=== PATIENT | male | born 2000 | race African-American/Black ===

== ENCOUNTER 2025-07-28 11:33 | Emergency (ER) | payer SELFPAY ==
--- OUTSIDE RECORDS SUMMARY | 2011-02-12 06:43 | XMS_ITS | Continuity of Care Document ---
Author Organization [facility] Address [address] [place] [address] Phone Care Team Providers Care Room Designer Name Role Phone KirstinRobby Unavailable Unavailable Allergies, Adverse Reactions, Alerts Substance Reaction Status Criticality No Known allergies Procedures Procedure Date OFFICE/OUTPATIENT VISIT, [facility] HIV-1 Condoms PREVENTIVE COUNSELING, INDIV MMR VACCINE, SC POLIOVIRUS, IPV, SC/IM TDAP VACCINE >7 IM Advance Directives Directive Yes / No Effective Date File Name Resuscitation Not Answered N/A N/A Life Support Not Answered N/A N/A Intubation Not Answered N/A N/A Antibiotics Not Answered N/A N/A IV Fluid Support Not Answered N/A N/A Tube Feed Not Answered N/A N/A Other Directive N/A N/A WARNING:The information contained in this section is historical and is provided for information only and does not constitute a legal document or any assurance that the information is still accurate. Please verify the information with the jacobs of the legal document before using it for clinical purposes. Encounters Encounter Description Practice Location Reason(s) For Visit Diagnoses Date Provider Providers Copied on Encounter [facility], [address] [place] [address], [id number], [place] tel:[phone] [facility] STI male (chief complaint) No Information Kirstin Bustamante. [address] [place] [address], [id number], [place]. tel:[phone] OFFICE/OUTPATI ENT VISIT, [facility], [address], [place], [id number], [place] tel:[phone] [facility] STI male (chief complaint) Screening examination for venereal disease Kirstin Bustamante. [address], [place], [id number], [place]. tel:[phone] PREVENTIVE COUNSELING, INDIV [facility], [address], [place], [id number], [place] tel:[phone] [facility] No Information Visci DO Sunny. [address], [place], [id number], [place]. tel:[phone] Family History Family Member Type Diagnosis Age At Onset No Information Payers Payer name Insurance type Covered democrat ID Bernie pinzon(s) [employer] [place] [employer] [id number] Social History Type Description Quantity Date Captured Comments Alcohol Use Details Unknown Caffeine Use Details Unknown Tobacco Use Status No Information Smoking Status No Information Sex Male Sexual Orientation Straight or heterosexual Chief Complaint And Reason For Visit From encounter dated '02/12/2011 11:43'. STI male (chief complaint) Reason For Referral Reason For Referral No Information History Of Present Illness Encounter Date Complaint History Of Prese nt Illness No Information Functional Status Date Functional Assessmen t No Information Instructions Date Instruction Additional Infor gladis No treatment indicat ed today. Call for test results. Related to Screening examination for venereal disease Avoid sexual activit y while you await your test results. Related to Screening examination for venereal disease Assessments Type Assessment Date No Information Patient Care Teams Name Effective Dates (start - stop) Status Members No Information
[2025-07-28 11:36] VITALS: BP 160/89; PULSE 58; TEMP 36.4; O2SAT 97; BMI 27.0
[2025-07-28] MEDS: TETRACAINE HCL 0.5% OP SOL 80 DROP/4 ML BOTTLE OP (11:55)
--- NOTE | 2025-07-28 11:55 | ED_ITS ---
HPI HPI - General Adult General Chief complaint: Eye Problems Stated complaint: implementation analyst in eye Time Seen by Provider: 07/28/25 11:35 Source: patient Mode of arrival: walk-in History of Present Illness HPI narrative: 25-year-old male presents for left eye issue. 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 He describes some burning and irritation. No other injury was sustained. Related Data Previous Rx's ?Medication ?Instructions ?Recorded ketorolac 0.5 % eye drops (Acular) 1 drp ophthalmic (e ye) Q6H PRN eye 07/28/25 pain #5 mL Allergies Allergy/AdvReac Type Severity Reaction Status Date / Time No Known Drug Allergies Allergy Verified 07/28/25 11:39 Review of Systems ROS Narrative A ten point review of systems is negative except as noted above. PFSH PFSH Social History Little interest or pleasure in doing things: not at all Feeling down, depressed, or hopeless: not at all Exam Narrative Exam Narrative: Nurses note and vital signs reviewed General:The patient appears well and in no apparent distress.Patient is resting comfortably on cart. Skin:Warm, dry, no pallor noted.There is no rash noted. Head:Normocephalic, atraumatic Eye: Right eye appears normal. The left conjunctiva is injected. No foreign bodies are noted. Globe intact. Extraocular movements are intact. Ears, Nose, Mouth, and Throat: oral mucosa is moist. Nares patent. Cardiovascular:Regular Rate and Rhythm Respiratory:Patient is in no distress, no accessory muscle use, lungs are clear to auscultation, no wheezing, rales or rhonchi Back:non-tender GI: Soft and nontender Musculoskeletal: No joint swelling Neurological:A&O, normal speech Psychiatric:Cooperative Constitutional Vital Signs, click to edit/add: Last Vital Signs Temp 97.6 F 07/28/25 11:36 Pulse 58 L 07/28/25 11:36 Resp 18 07/28/25 11:36 BP 160/89 H 07/28/25 11:36 Pulse Ox 97 07/28/25 11:36 O2 Del Method Room Air 07/28/25 11:36 Course Vital Signs Vital signs: Vital Signs Temperature 97.6 F 07/28/25 11:36 Pulse Rate 58 L 07/28/25 11:36 Respiratory Rate 18 07/28/25 11:36 Blood Pressure 160/89 H 07/28/25 11:36 Pulse Oximetry 97 07/28/25 11:36 Oxygen Delivery Method Room Air 07/28/25 11:36 Temperature 97.6 F 07/28/25 11:36 Pulse Rate 58 L 07/28/25 11:36 Respiratory Rate 18 07/28/25 11:36 Blood Pressure 160/89 H 07/28/25 11:36 Pulse Oximetry 97 07/28/25 11:36 Oxygen Delivery Method Room Air 07/28/25 11:36 Medical Decision Making MDM Narrative Medical decision making narrative: His eye was irrigated with Harrison lens irrigation and he was prescribed Acular. Treatment diagnosis and follow-up were discussed with the patient. Differential Diagnosis Differential Diagnosis: Chemical conjunctivitis, bacterial conjunctivitis Discharge Plan Discharge Chief Complaint: Eye Problems Clinical Impression: Chemical conjunctivitis Patient Disposition: Home, Self-Care Time of Disposition Decision: 12:06 Mode of Transportation: Private Vehicle Prescriptions / Home Meds: New ketorolac [Acular] 0.5 % drops 1 drp ophthalmic (eye) Q6H PRN (Reason: eye pain) Qty: 5 0RF Print Language: Divehi Instructions: How to Use Eye Drops (ED), Conjunctivitis (ED) Referrals: MARIFRE EVANS [Primary Care Provider, Family Practice] - 1 week
--- OUTSIDE RECORDS SUMMARY | 2025-07-28 11:59 | XMS_ITS | Clinical Summary ---
Author Organization [facility] Address [address] [place] [address] Care Team Providers Care Analytics Leader Name Role Phone Unavailable Primary Care Provider Unavailabl e Social History Tobacco UseTypesPacks/DayYears UsedDateSmoking Tobacco: Never AssessedSex and Gender InformationValueDate RecordedSex Assigned at BirthNot on fileLegal Sex Male11/14/2022 7:22 PM EDTGender IdentityNot on fileSexual OrientationNot on file Last Filed Vital Signs Vital SignReadingTime TakenCommentsBlood Uzryuvhm327/8207 12:00 PM EDT Pulse--Temperature--Respiratory Rate--Oxygen Saturation--Inhaled Oxygen Concentration--Htawhq30.1 kg (203 lb)02/13/2021 12:00 PM KYEOqbive705 cm (6' 2 ) 03/29/2021 12:00 PM EDTBody Mass Index26. 12:00 PM EDT Plan of Treatment Not on file
--- OUTSIDE RECORDS SUMMARY | 2025-07-28 11:59 | XMS_ITS | Clinical Summary ---
Author Organization [facility] Address [address] [place] [address] Care Team Providers Care Head Of Sales Name Role Phone Bayron Pedersen MD Primary Care Provider +-[phone] Sandra Avila MD Unavailable + [phone] Allergies No known active allergies Medications No known medications Active Problems ProblemNoted DateDiagnosed YarqHtzxfxidv26/30/2022easonal ehigtknpx06/10/2022 Vocal fold crjxshvkejl97/10/2022LPRD (laryngopharyngeal reflux disease) 10/12/2021Marijuana xyxzed9410/12/2021 Social History Tobacco UseTypesPacks/DayYears UsedDateSmoking Tobacco: NeverSmokeless Tobacco: NeverAlcohol UseStandard Drinks/WeekCommentsYes0 (1 standard drink = 0.6 oz pure alcohol)Area Deprivation IndexAnswerDate RecordedNational Score (1-100), lower number is lower riskNot on file05/09/2021tate Score (1-10), lower number is lower riskNot on file05/09/2021ata from: https://www.neighborhoodatlas.medicine.[facility]/. Last address used for calculationNot on file05/09/2021ex and Gender InformationValueDate RecordedSex Assigned at BirthNot on fileLegal WutUwps1604/04/2021 11:26 AM EDTGender Identity Not on fileSexual OrientationNot on file Last Filed Vital Signs Vital SignReadingTime TakenCommentsBlood Pressure--Pulse--Temperature-- Respiratory Rate--Oxygen Saturation--Inhaled Oxygen Concentration--Mjkrxl42.5 kg (210 lb 8 oz)10/12/2021 10:28 AM BVCEsebbi542 cm (6' 2 )10/12/2021 10:28 AM EST Body Mass Index27.03010/12/2021 10:28 AM EST Plan of Treatment Health MaintenanceDue DateLast DoneCommentsAnxiety Xotemgztx96/31/2016Depression Cbcbmthik62/31/2016HIV Cbcplszkb43/31/2016Hepatitis C Rdaeugndn09/31/2016 DTaP,Tdap,Td Vaccine (7 - Td or Tdap), 01/15/2003, 05/15/1999, Additional history existsHPV Vaccine (1 - 3-dose SCDM series) 2025ovid-19 Vaccine ( - 2024- season)2025Influenza Vaccine (#1) 2025Hepatitis B QgneslfWgsfbdcrx01/04/1999, 1998, 1998 Insurance Care Teams Team MemberRelationshipSpecialtyStart DateEnd Bayron Pedersen MD PCP - GeneralFamily Medicine04/04/21 Sandra Avila MD [address] [place] [address] ReferringEnt - Otolaryngology04/04/21
== END 2025-07-28 12:37 | disposition home or self-care (01) ==
PROVIDERS: Emergency Provider Emergency Medicine; PCP Nurse Practitioner Family
DX: T65.891A Toxic effect of other specified substances, accidental (unintentional), initial encounter (principal); H10.212 Acute toxic conjunctivitis, left eye
CPT/HCPCS: 99284